=== PATIENT | male | born 1980 | race Caucasian/White ===

== ENCOUNTER 2019-10-23 23:50 | Emergency (ER) | payer SELFPAY ==
[~2019-10-23] VITALS: Ht 182.9 cm; Wt 90.7 kg
[2019-10-24] MEDS ORDERED: ONDANSETRON HCL 4 MG/2 ML VIAL IV ONE
[2019-10-24 00:43] LABS: Urine Bacteria MANY /hpf (None Seen); Urine Blood Negative /uL (Negative); Urine Hyaline Cast FEW /lpf (0 - 2); Urine Mucus FEW (None Seen); Urine Specific Gravity 1.009 (1.001-1.035); Urine WBC 6 /hpf (0 - 3)
[2019-10-24 00:53] LABS: Amphetamine Screen, Urine NEGATIVE (NEGATIVE); Barbiturate Scree,Urine NEGATIVE (NEGATIVE); Benzodiazephine Screen, Urine NEGATIVE (NEGATIVE); Cannabinoid Screen, Urine NEGATIVE (NEGATIVE); Cocaine Screen, Urine NEGATIVE (NEGATIVE); Opiate Scree,Urine POSITIVE (NEGATIVE); Phencyclidine Screen, Urine NEGATIVE (NEGATIVE)
[2019-10-24 01:47] LABS: Basophils # (auto) 0 uL; Basophils % (auto) 0.1 % (0.0-2.0); Eosinophils # (auto) 0 uL; Eosinophils % (auto) 0.2 % (0.0-7.0); Hemoglobin 17.1 g/dL (13.5-17.5); Lymphocytes # (auto) 1.6 uL; Mean Corpuscular Hemoglobin 31.1 pg (28.0-32.0); Mean Corpuscular Hgb Conc. 34.8 g/dL (32.0-36.0); Mean Corpuscular Volume 89.2 fL (80.0-100.0); Monocytes # (auto) 0.5 uL; Monocytes % (auto) 4.5 % (0.0-12.0); Neutrophils % (auto) 79.2 % (37.0-80.0); Platelet Count (auto) 255 10^3/uL (140-450); Red Blood Cells 5.49 10^6/uL (4.5-5.90); White Blood Cell 10.1 10^3/uL (4.4-10.8)
[2019-10-24 02:03] LABS: Albumin 3.8 g/dL (3.4-5.0); INR 1.03 (0.9-1.15); Partial Thromboplastin Time 26.4 sec (23.64-32.05); Potassium 3.3 mmol/L (3.5-5.1)
[2019-10-24 02:04] LABS: Salicylate < 1.7 mg/dL (2.8-20.0)
[2019-10-24 02:05] LABS: Acetaminophen < 2.0 ug/mL (10-30); BUN/Creatinine Ratio 13.8
[2019-10-24 02:17] LABS: Bilirubin, Total 0.4 mg/dL (0.2-1.0); Total Protein 7.8 g/dL (6.4-8.2)
[2019-10-24] MEDS ORDERED: SODIUM CHLORIDE 0.9% 1,000 ML IV ONE ×4 (06:15→08:38)
[2019-10-24] MEDS ORDERED: KETOROLAC TROMETH 30 MG/ML 1ML VIAL IV ONE ×3 (06:15→08:15)
[2019-10-24] MEDS ORDERED: SODIUM CHLORIDE 0.9% 2,000 ML IV ONE (08:00)
[2019-10-24 08:34] LABS: BUN/Creatinine Ratio 15.5; Calcium 7.8 mg/dL (8.5-10.1)
[2019-10-24] MEDS ORDERED: THIAMINE 100mg/ml INJ (200mg/2ml VIAL) IV ONE (08:45)
[2019-10-24 11:00] VITALS: BP 101/64
== END 2019-10-24 13:12 | disposition home or self-care (01) ==
LOC: EDBD 23:50 → EDUNIT# 23:50 → ER 10-24 00:03
DX: S02.2XXA Fracture of nasal bones, initial encounter for closed fracture (principal); S30.1XXA Contusion of abdominal wall, initial encounter; S20.219A Contusion of unspecified front wall of thorax, initial encounter; F10.129 Alcohol abuse with intoxication, unspecified; T68.XXXA Hypothermia, initial encounter; X58.XXXA Exposure to other specified factors, initial encounter; Y93.89 Activity, other specified; Y99.8 Other external cause status; Y92.89 Other specified places as the place of occurrence of the external cause
CPT/HCPCS: 36415; 70450; 70486; 71045; 71250; 72125; 74176; 80048; 80053; 80307; 80320; 80329; 81001; 82962; 85025; 85610; 85730; 96361; 96374; 96375; 96376; 99284; J1885; J2405; J3411; J7030

== ENCOUNTER 2020-03-02 14:05 | Emergency (ER) | payer BC, MEDICAID ==
[~2020-03-02] VITALS: Ht 185.4 cm; Wt 106.6 kg
[2020-03-02] MEDS ORDERED: AZITHROMYCIN 500MG/ 250ML 250 ML IV ONE (14:45)
[2020-03-02 16:08] LABS: Basophils # (auto) 0 10 ^3/uL (0-0.2); Basophils % (auto) 0.5 % (0.0-2.0); Eosinophils # (auto) 0.2 10 ^3/uL (0-0.8); Eosinophils % (auto) 2.9 % (0.0-7.0); Hematocrit 46.8 % (41.0-53.0); Lymphocytes # (auto) 2.1 10 ^3/uL (0.4-5.4); Lymphocytes % (auto) 31.5 % (10.0-50.0); Mean Corpuscular Hemoglobin 30.3 pg (28.0-32.0); Mean Corpuscular Hgb Conc. 34.2 g/dL (32.0-36.0); Mean Corpuscular Volume 88.5 fL (80.0-100.0); Monocytes # (auto) 0.6 10 ^3/uL (0-1.3); Monocytes % (auto) 8.7 % (0.0-12.0); Neutrophils # (auto) 3.8 10 ^3/uL (1.6-8.6); Neutrophils % (auto) 56.4 % (37.0-80.0); Nucleated Red Blood Cells % 0.1 %; Platelet Count (auto) 234 10^3/uL (140-450); Red Blood Cells 5.29 10^6/uL (4.5-5.90); Red Cell Distribution Width 12.4 % (11.8-14.3); White Blood Cell 6.7 10^3/uL (4.4-10.8)
[2020-03-02 16:24] LABS: Albumin 3.4 g/dL (3.4-5.0); BUN/Creatinine Ratio 17.3; Calcium 8.4 mg/dL (8.5-10.1); Potassium 3.7 mmol/L (3.5-5.1)
[2020-03-02 16:27] LABS: Total Protein 7.1 g/dL (6.4-8.2)
[2020-03-02 17:38] VITALS: BP 105/56
== END 2020-03-02 18:06 | disposition home or self-care (01) ==
LOC: ER 14:05
DX: J40 Bronchitis, not specified as acute or chronic (principal)
CPT/HCPCS: 36415; 71045; 80053; 85025; 87070; 87804; 87880; 96365; 96366; 99284; C9803; J0456; U0003

== ENCOUNTER 2020-09-27 02:09 | Emergency (ER) | payer BC, OTHER ==
[~2020-09-27] VITALS: Ht 185.4 cm; Wt 106.6 kg
[2020-09-27] MEDS ORDERED: methylPREDNISolone SOD SUCC 125 MG/2 ML VL IM ONE (05:15)
[2020-09-27] MEDS ORDERED: KETOROLAC TROMETH 60MG/2ML VIAL IM ONE (05:15)
[2020-09-27 05:34] VITALS: BP 131/89
== END 2020-09-27 06:55 | disposition home or self-care (01) ==
LOC: ER 02:10
DX: M51.36 Other intervertebral disc degeneration, lumbar region (principal); M54.16 Radiculopathy, lumbar region; M54.31 Sciatica, right side
CPT/HCPCS: 72131; 96372; 99284; J1885; J2930

== ENCOUNTER 2022-05-25 18:36 | Inpatient (IN) | payer BC ==
[~2022-05-25] VITALS: Ht 182.9 cm; Wt 106.7 kg
[2022-05-25] MEDS ORDERED: KETOROLAC TROMETH 30 MG/ML 1ML VIAL IV ONE ×2 (19:30→23:15)
[2022-05-25 19:55] LABS: Basophils # (auto) 0 10 ^3/uL (0-0.2); Basophils % (auto) 0.1 % (0.0-2.0); Eosinophils # (auto) 0 10 ^3/uL (0-0.8); Eosinophils % (auto) 0.1 % (0.0-7.0); Hemoglobin 16.1 g/dL (13.5-17.5); Lymphocytes # (auto) 1.2 10 ^3/uL (0.4-5.4); Lymphocytes % (auto) 8.6 % (10.0-50.0); Mean Corpuscular Hemoglobin 30.6 pg (28.0-32.0); Mean Corpuscular Hgb Conc. 34.9 g/dL (32.0-36.0); Mean Corpuscular Volume 87.7 fL (80.0-100.0); Monocytes # (auto) 0.5 10 ^3/uL (0-1.3); Monocytes % (auto) 3.5 % (0.0-12.0); Neutrophils # (auto) 11.8 10 ^3/uL (1.6-8.6); Neutrophils % (auto) 87.7 % (37.0-80.0); Nucleated Red Blood Cells % 0.3 %; Red Blood Cells 5.25 10^6/uL (4.5-5.90); Red Cell Distribution Width 13.1 % (11.8-14.3); White Blood Cell 13.5 10^3/uL (4.4-10.8)
[2022-05-25 21:08] LABS: Albumin 3.9 g/dL (3.4-5.0); Calcium 9.1 mg/dL (8.5-10.1); Potassium 4.1 mmol/L (3.5-5.1)
[2022-05-25 21:12] LABS: BUN/Creatinine Ratio 9.3; Bilirubin, Total 0.8 mg/dL (0.2-1.0); Total Protein 7.5 g/dL (6.4-8.2)
[2022-05-25] MEDS ORDERED: DOCUSATE SOD 100 MG CAP PO PRN (22:30)
[2022-05-25] MEDS ORDERED: ONDANSETRON HCL 4 MG/2 ML VIAL IV PRN (22:30)
[2022-05-25] MEDS ORDERED: NITROGLYCERIN 0.4 MG SL TAB SL PRN (22:30)
[2022-05-25] MEDS ORDERED: metroNIDAZOLE 500MG/100ML 100 ML IV ONE (22:30)
[2022-05-25] MEDS ORDERED: ACETAMINOPHEN 325 MG TAB PO PRN (22:30)
[2022-05-25] MEDS ORDERED: MORPHINE SULFATE INJ 2 MG/ml SYRG IV PRN ×2 (22:30)
[2022-05-26] MEDS: metroNIDAZOLE 500MG/100ML 100 ML IV SCH ×2 (01:30→06:00)
[2022-05-26 01:39] LABS: Urine Bacteria NONE SEEN /hpf (None Seen); Urine Blood 3+ /uL (Negative); Urine Hyaline Cast FEW /lpf (0 - 2); Urine Mucus FEW (None Seen); Urine Specific Gravity 1.027 (1.001-1.035); Urine WBC 48 /hpf (0 - 3)
[2022-05-26 08:40] LABS: Albumin 3.4 g/dL (3.4-5.0); Basophils # (auto) 0 10 ^3/uL (0-0.2); Basophils % (auto) 0.3 % (0.0-2.0); Calcium 8.5 mg/dL (8.5-10.1); Eosinophils # (auto) 0.1 10 ^3/uL (0-0.8); Eosinophils % (auto) 1.2 % (0.0-7.0); Hematocrit 43.8 % (41.0-53.0); Hemoglobin 15.2 g/dL (13.5-17.5); Lymphocytes # (auto) 1.9 10 ^3/uL (0.4-5.4); Lymphocytes % (auto) 22.3 % (10.0-50.0); Mean Corpuscular Hemoglobin 30.5 pg (28.0-32.0); Mean Corpuscular Hgb Conc. 34.6 g/dL (32.0-36.0); Mean Corpuscular Volume 88.2 fL (80.0-100.0); Monocytes # (auto) 0.6 10 ^3/uL (0-1.3); Monocytes % (auto) 6.9 % (0.0-12.0); Neutrophils % (auto) 69.3 % (37.0-80.0); Potassium 3.7 mmol/L (3.5-5.1); Red Blood Cells 4.96 10^6/uL (4.5-5.90); Red Cell Distribution Width 13.1 % (11.8-14.3); White Blood Cell 8.7 10^3/uL (4.4-10.8)
[2022-05-26 08:43] LABS: BUN/Creatinine Ratio 11.5; Bilirubin, Total 1.3 mg/dL (0.2-1.0); Total Protein 6.6 g/dL (6.4-8.2)
[2022-05-26 09:00] VITALS: BP 94/50
[2022-05-26] MEDS: FAMOTIDINE (10MG/ML) 2ML VL IV SCH (10:41)
[2022-05-26 13:00] VITALS: BP 103/59
[2022-05-26] MEDS ORDERED: cefTRIAXone 1GM/50ML D5W 50 ML IV ONE (14:00)
[2022-05-26 17:00] VITALS: BP 109/66
[2022-05-26 20:00] VITALS: BP 129/75
[2022-05-26 22:00] VITALS: BP 129/75
[2022-05-27] MEDS: HYDROcodone-ACET 5/325MG TAB PO PRN ×4 (00:28→16:31)
[2022-05-27 05:31] VITALS: BP 102/64
[2022-05-27 08:00] VITALS: BP 103/58
[2022-05-27 09:00] VITALS: BP 103/58
[2022-05-27] MEDS ORDERED: cefTRIAXone 1GM/50ML D5W 50 ML IV SCH (09:00)
[2022-05-27] MEDS: FAMOTIDINE (10MG/ML) 2ML VL IV SCH (09:12)
[2022-05-27 13:00] VITALS: BP 114/64
[2022-05-27 17:00] VITALS: BP 117/69
[2022-05-27 22:31] VITALS: BP 128/68
== END 2022-05-27 20:55 | disposition left against medical advice (07) | DRG 690 ==
LOC: ER 18:36 → EDSEX 18:36 → EDBD 18:36 → OVERFLOW 22:17 → WEST WING 05-26 00:40
PROVIDERS: ADMIT Nurse Practitioner Family; ATTEND Internal Medicine Pulmonary Disease
DX: N13.6 Pyonephrosis (principal); N20.2 Calculus of kidney with calculus of ureter; R31.9 Hematuria, unspecified; E66.9 Obesity, unspecified; Z20.822 Contact with and (suspected) exposure to COVID-19; Z53.29 Procedure and treatment not carried out because of patient's decision for other reasons; Z68.31 Body mass index [BMI] 31.0-31.9, adult
CPT/HCPCS: 36415; 74176; 76775; 80053; 81001; 83036; 85025; 87086; 96374; G0378; J0696; J1885; J3490